=== PATIENT | female | born 1950 | race Caucasian/White ===

== ENCOUNTER 2020-07-10 08:36 | Day surgery (SDC) | payer MEDICARE, MEDICAID ==
[~2020-07-10] VITALS: Ht 167.6 cm; Wt 50.9 kg
--- NOTE | 2020-07-10 10:43 | NUR ---
07/10/20 1043 Katie Boucher 1040 PATIENT ARRIVES TO PACU RESTING WITH EYES CLOSED. RESP EVEN AND UNLABORED, ROOM AIR SATS 100%. PATIENT WAKES UP WITH VERBAL STIMULI, DENIES PAIN OR NAUSEA. BACK TO SLEEP.
--- NOTE | 2020-07-11 08:56 | OR ---
[facility] [address] [place], [place] [address] Signed DATE OF OPERATION: 07/10/2020 SURGEON: Dorothy Alejo MD PREOPERATIVE DIAGNOSIS: Positive Cologuard test. POSTOPERATIVE DIAGNOSES: Multiple sessile polyps (3-7 mm) in the distal right colon, distal hepatic flexure, proximal transverse colon, 35 cm, 32 cm, 23 cm, 7 cm, and 5 cm. PROCEDURE: Colonoscopy with hot biopsy. ESTIMATED BLOOD LOSS: None. INDICATIONS: Tamika is a 69-year-old female, otherwise generally healthy. She has been a lifelong smoker. She has never had a previous colonoscopy. She underwent a Cologuard test and it came back positive. She has no lower GI complaints. There is no family history of colon cancer or polyps. I gave her a pamphlet in the office on colonoscopy and we looked at that together along with the risks including, but not limited to gas bloating, crampy abdominal pain, bleeding, perforation requiring surgery, and missed diagnosis. We also discussed the need for IV conscious sedation. She had expressed understanding and wished to proceed. PROCEDURE NOTE: Tamika was taken into our endoscopy suite and placed in the left lateral decubitus position. She was given IV sedation with 6 mg of Versed and 125 mcg of fentanyl. A digital rectal exam was performed and this was unremarkable. The adult colonoscope was introduced and advanced under direct visualization of camera. When we had in the hepatic flexure, she needed some extra sedation and rotation into the supine position with abdominal compression in order to advance the scope directly into the cecum itself. We could easily see the appendiceal orifice and ileocecal valve. Her prep was good. We took multiple pictures throughout for photodocumentation. We withdrew the scope. The above-mentioned polyps were all easily removed with the help of hot biopsy forceps. We found just a single polyp in the distal right colon, distal hepatic flexure and the proximal transverse colon. However from 35 cm down to each area had multiple polyps. They all appear sessile, most likely were hyperplastic. They were all sent off for Electronically Signed By: DOROTHY ALEJO MD 07/11/20 0856 PATIENT NAME: TAMIKA CONTRERAS OPERATIVE REPORT DATE OF : 48 REPORT #: [id number] PHYSICIAN: DOROTHY ALEJO MD PCP: RICHARD VANEGAS DO REPORT IS CONFIDENTIAL AND NOT TO BE RELEASED WITHOUT AUTHORIZATION [facility] [address] [place] [address] Signed pathologic review. We also cauterized quite a number of polyps particularly in the distal sigmoid colon and in the rectum. The scope was then retroflexed in the rectum and there was no additional pathology noted above the anal canal. After this, the gas was suctioned out and the colonoscope removed. Tamika tolerated the procedure quite well. RECOMMENDATIONS: Tamika probably be toney to consider a repeat colonoscopy anywhere from three months out to 6-8 months or so. I reviewed this with her in the office. Dorothy Alejo MD ALB/MODL /[id number] cc: DO Dorothy Fam MD Copies: RICHARD VANEGAS ANDREW L MD ~ Electronically Signed By: DOROTHY ALEJO MD 07/11/20 0856 PATIENT NAME: TAMIKA CONTRERAS OPERATIVE REPORT DATE OF : 48 REPORT #: [id number] PHYSICIAN: DOROTHY ALEJO MD PCP: RICHARD VANEGAS DO REPORT IS CONFIDENTIAL AND NOT TO BE RELEASED WITHOUT AUTHORIZATION
--- NOTE | 2020-07-12 17:18 | PATH ---
[facility] [address] [place], [place] [address] Signed SPECIMEN(S): A DISTAL RIGHT COLON POLYP SPECIMEN(S): B DISTAL HEPATIC FLEXURE POLYP SPECIMEN(S): C PROXIMAL TRANSVERSE POLYP SPECIMEN(S): D PROXIMAL SIGMOID POLYPS AT 35 CM SPECIMEN(S): E COLON POLYP AT 32 CM SPECIMEN(S): F COLON POLYP AT 23 CM SPECIMEN(S): G COLON POLYPS AT 7 CM SPECIMEN(S): H COLON POLYP AT 5 CM SPECIMEN SOURCE: A. DISTAL RIGHT COLON POLYP B. DISTAL HEPATIC FLEXURE POLYP C. PROXIMAL TRANSVERSE POLYP D. PROXIMAL SIGMOID POLYPS AT 35 CM E. COLON POLYP AT 32 CM F. COLON POLYP AT 23 CM G. COLON POLYPS AT 7 CM H. COLON POLYP AT 5 CM CLINICAL HISTORY: Colonoscopy. Positive Cologuard/colorectal polyps. MICROSCOPIC DESCRIPTION: Histologic sections of all submitted blocks are examined by light microscopy. These findings, together with the gross examination, support the pathologic diagnosis. FINAL PATHOLOGIC DIAGNOSIS: A. Colon, distal right polyp, polypectomy: - Hyperplastic polyp. - Negative for dysplasia or malignancy. B. Colon, distal hepatic flexure polyp, polypectomy: - Hyperplastic polyp. - Negative for dysplasia or malignancy. C. Colon, proximal transverse polyp, polypectomy: - Hyperplastic polyp. - Negative for dysplasia or malignancy. D. Colon, proximal sigmoid polyps at 35 cm, polypectomy: - Hyperplastic polyp (one fragment). - Negative for dysplasia or malignancy. E. Colon, polyp at 32 cm, polypectomy: - Colonic mucosa with no histopathologic abnormality. PATIENT NAME: MELINDA CONTRERAS PATHOLOGY DATE OF : 48 REPORT #: [id number] PHYSICIAN: JONO BEGUM PCP: RICHARD VANEGAS DO REPORT IS CONFIDENTIAL AND NOT TO BE RELEASED WITHOUT AUTHORIZATION [facility] [address] [place], [place] [address] Signed - Negative for dysplasia or malignancy. F. Colon, polyp at 23 cm, polypectomy: - Fragments of hyperplastic polyp. - Negative for dysplasia or malignancy. G. Colon, polyps at 7 cm, polypectomy: - Fragments of hyperplastic polyp(s). - Negative for dysplasia or malignancy. H. Colon, polyp at 5 cm, polypectomy: - Colonic mucosa with no histopathologic abnormality. - Negative for dysplasia or malignancy. NAL:cml:C2NR GROSS DESCRIPTION: Eight specimens are received in eight containers, labeled "VC." A. The specimen, labeled "VC, distal right colon polyp," is received in formalin and consists of two anthony soft tissue fragments that measure 0.1-0.2 cm in greatest dimension. The specimen is entirely submitted in cassette (A1). B. The specimen, labeled "VC, distal hepatic flexure polyp," is received in formalin and consists of one anthony soft tissue fragment that measures 0.2 cm in greatest dimension. The specimen is entirely submitted in cassette (B1). C. The specimen, labeled "VC, proximal transverse colon polyp," is received in formalin and consists of two anthony soft tissue fragments that measure 0.2 cm in greatest dimension. The specimen is entirely submitted in cassette (C1). D. The specimen, labeled "VC, proximal sigmoid colon polyps at 35 cm," is received in formalin and consists of one anthony soft tissue fragment that measures 0.1 cm in greatest dimension. The specimen is entirely submitted in cassette (D1). E. The specimen, labeled "VC, colon polyp at 32 cm," is received in formalin and consists of one anthony soft tissue fragment that measures 0.2 cm in greatest dimension. The specimen is entirely submitted in cassette (E1). F. The specimen, labeled "VC, colon polyp at 23 cm," is received in formalin and consists of two anthony soft tissue fragments that measure 0.2 cm in greatest dimension. The specimen is entirely submitted in cassette (F1). G. The specimen, labeled "VC, colon polyps at 7 cm," is received in formalin and consists of four anthony soft tissue fragments that measure 0.1-0.2 cm in PATIENT NAME: MELINDA CONTRERAS PATHOLOGY DATE OF : 48 REPORT #: [id number] PHYSICIAN: JONO BEGUM PCP: RICHARD VANEGAS DO REPORT IS CONFIDENTIAL AND NOT TO BE RELEASED WITHOUT AUTHORIZATION [address] [address] Signed greatest dimension. The specimen is entirely submitted in cassette (G1). H. The specimen, labeled "VC, colon polyp at 5 cm," is received in formalin and consists of one anthony soft tissue fragment that measures 0.2 cm in greatest dimension. The specimen is entirely submitted in cassette (H1). JS (under the direct supervision of a pathologist) The Gross Description was prepared using a voice recognition system. The report was reviewed for accuracy; however, sound-alike word errors, addition and/or deletions may occur. If there is any question about this report, please contact Client Services. PERFORMING LABORATORY: The technical component was performed by [employer], [address] [place] [id number] ([employer]: Clarisse Saez MD; CLIA# [id number]). [facility], [address] [place] [address] (CLIA# [id number]). Diagnostician: Jody Hardy MD Pathologist Electronically Signed 07/12/2020 Copies: ~ PATIENT NAME: MELINDA CONTRERAS PATHOLOGY DATE OF : 48 REPORT #: [id number] PHYSICIAN: JONO BEGUM PCP: RICHARD VANEGAS DO REPORT IS CONFIDENTIAL AND NOT TO BE RELEASED WITHOUT AUTHORIZATION
== END 2020-07-10 11:30 | disposition home or self-care (01) ==
LOC: DS 08:36 → OPS 08:36 → DS 10:30 → OPS 11:30
PROVIDERS: ATTEND Colon & Rectal Surgery
PROC: 0DBE8ZZ Excision of Large Intestine, Via Natural or Artificial Opening Endoscopic (ICD-10-PCS; principal; 2020-07-10 10:30)
DX: K63.5 Polyp of colon (principal); K62.1 Rectal polyp; H91.93 Unspecified hearing loss, bilateral; R91.8 Other nonspecific abnormal finding of lung field; F17.210 Nicotine dependence, cigarettes, uncomplicated
CPT/HCPCS: 99153; G0500; J2250; J3010; J7121

== ENCOUNTER 2021-12-05 06:05 | Day surgery (SDC) | payer MEDICARE, MEDICAID ==
[~2021-12-05] VITALS: Ht 167.6 cm; Wt 48.8 kg
[~2021-12-05 06:05] MED LIST: VITAMIN D325 MCG
--- NOTE | 2021-12-05 08:00 | NUR ---
12/05/21 0800 Marguerite Guillen 0757-PATIENT ARRIVED TO PACU ON 2L NC RR EVEN LAYING LEFT LATERAL. PATIENT OPENS EYES TO VERBAL STIMULI DENIES PAIN OR NAUSEA. DROWSY DOZES BACK TO SLEEP. ENCOURAGED TO PASS GAS.
--- NOTE | 2021-12-05 09:17 | OR ---
[facility] [address] [place], [place] [address] Signed DATE OF OPERATION: 12/05/2021 SURGEON: Dorothy Alejo MD PREOPERATIVE DIAGNOSIS: Personal history of multiple hyperplastic polyps June 2020. POSTOPERATIVE DIAGNOSES: 1. Minimal internal anal skin tags. 2. Multiple hyperplastic appearing polyps, all less than 4 mm at hepatic flexure, proximal transverse colon, distal transverse colon, 70 cm and 20 cm. PROCEDURE: Colonoscopy with hot biopsy. ESTIMATED BLOOD LOSS: None. INDICATIONS: Tamika is a 71-year-old female, who returns for a followup colonoscopy. She came for her initial colonoscopy in June 2020. At that time, she had a positive guaiac test. She had a large number of small hyperplastic polyps removed. At that time, they were 7 mm or smaller in size. She had done well with Versed and fentanyl. She has no lower GI complaints currently. There is no family history of colon cancer or polyps. She returns now for followup. In the office, I gave her a pamphlet on colonoscopy. We reviewed the nature of the test. She recalls there is risk including, but not limited to gas bloating, crampy abdominal pain, bleeding, perforation requiring surgery, and missed diagnosis. We also reviewed the need for IV conscious sedation. She has always done well with Versed and fentanyl. She expressed understanding and wished to proceed. PROCEDURE NOTE: Tamika was taken into the endoscopy suite and placed in the left lateral decubitus position. She was given 3.5 mg of Versed and 100 mcg of fentanyl to cover the case. A digital rectal exam was performed and this was unremarkable. There were no external hemorrhoids. She has good sphincter tone. The adult colonoscope had been introduced and advanced under direct visualization of the camera up into the cecum itself. Her prep was good. We could easily see the appendiceal orifice and ileocecal valve. The scope was then slowly withdrawn. We took pictures throughout for photodocumentation. The above-mentioned polyps were easily removed with the help of hot biopsy forceps. We could also see multiple previous polypectomy sites from last year. There was no Electronically Signed By: DOROTHY ALEJO MD 12/05/21 0917 PATIENT NAME: TAMIKA CONTRERAS OPERATIVE REPORT DATE OF : 48 REPORT #: [id number] PHYSICIAN: DOROTHY ALEJO MD PCP: ANEUDY VANEGAS DO REPORT IS CONFIDENTIAL AND NOT TO BE RELEASED WITHOUT AUTHORIZATION [facility] [address] [place], [place] [address] Signed diverticulosis. Once in the rectum, the scope was then retroflexed and she has very small internal anal skin tags. After this, the gas was suctioned out and the colonoscope removed. Tamika tolerated the procedure quite well. RECOMMENDATIONS: I will see Tamika back in my office in 7 to 14 days to review her results. I suspect she can increase the interval between colonoscopies. MD MIGUEL ANGEL Ball/LINDA /[id number] cc: MD Aneudy Ball DO Copies: DOROTHY ALEJO MD, ARIAN DO ~ Electronically Signed By: DOROTHY ALEJO MD 12/05/21 0917 PATIENT NAME: TAMIKA CONTRERAS OPERATIVE REPORT DATE OF : 48 REPORT #: [id number] PHYSICIAN: DOROTHY ALEJO MD PCP: ANEUDY VANEGAS DO REPORT IS CONFIDENTIAL AND NOT TO BE RELEASED WITHOUT AUTHORIZATION
--- NOTE | 2021-12-09 14:23 | PATH ---
[facility] [address] [place], [place] [address] Signed SPECIMEN(S): A POLYP HEPATIC FLEXURE SPECIMEN(S): B POLYP TRANSVERSE PROXIMAL COLON SPECIMEN(S): C POLYP DISTAL TRANSVERSE COLON SPECIMEN(S): D POLYP AT 70 CM SPECIMEN(S): E POLYP AT 20 CM SPECIMEN SOURCE: A. POLYP HEPATIC FLEXURE B. POLYP TRANSVERSE PROXIMAL COLON C. POLYP DISTAL TRANSVERSE COLON D. POLYP AT 70 CM E. POLYP AT 20 CM CLINICAL HISTORY: No family history of colon cancer; numerous hyperplastic polyps on 07/10/20 FINAL PATHOLOGIC DIAGNOSIS: A. Colon, hepatic flexure, polypectomy: - Benign colonic mucosa with prominent intramucosal lymphoid aggregate. - No evidence of neoplasia. B. Colon, transverse proximal, polypectomy: - No significant histopathology. - There is no evidence of neoplasia. C. Colon, distal transverse, polypectomy: - No significant histopathology. - There is no evidence of neoplasia. D. Colon, 70 cm, polypectomy: - Hyperplastic polyp. - There is no evidence of dysplasia or malignancy. E. Colon, 20 cm, polypectomy: - Benign colonic mucosa with prominent intramucosal lymphoid aggregate. - No evidence of neoplasia. COMMENT: Regarding specimen A and E, sections of colonic tissue demonstrate a benign intramucosal lymphoid aggregate. Intramucosal lymphoid aggregates can sometimes appear as polyps endoscopically. They have no clinical significance. There is no evidence of dysplasia or malignancy. Regarding specimens B and C, the sections from the specimens are architecturally normal without crypt distortion. There is no acute or chronic inflammation. There are no abnormal infiltrates. There PATIENT NAME: MELINDA CONTRERAS PATHOLOGY DATE OF : 48 REPORT #: [id number] PHYSICIAN: OJNO BEGUM PCP: RICHARD VANEGAS DO REPORT IS CONFIDENTIAL AND NOT TO BE RELEASED WITHOUT AUTHORIZATION [facility] [address] [place], [place] [address] Signed is no evidence of inflammatory, hyperplastic or adenomatous polyps. TWK:[facility]:C2NR MICROSCOPIC EXAMINATION: Histologic sections of all submitted blocks are examined by light microscopy. These findings, together with the gross examination, support the pathologic diagnosis. GROSS DESCRIPTION: Five specimens are received in five containers, labeled "VC." A. The specimen, labeled "VC, hepatic flexure polyp," is received in formalin and consists of one anthony soft tissue fragment that measures 0.3 cm in greatest dimension. The specimen is entirely submitted in cassette (A1). B. The specimen, labeled "VC, transverse colon polyp, proximal," is received in formalin and consists of three anthony soft tissue fragments that measure 0.2 to 0.3 cm in greatest dimension. The specimen is entirely submitted in cassette (B1). C. The specimen, labeled "VC, transverse colon polyp, distal," is received in formalin and consists of one anthony soft tissue fragment that measures 0.3 cm in greatest dimension. The specimen is entirely submitted in cassette (C1). D. The specimen, labeled "VC, polyp at 70 cm," is received in formalin and consists of one anthony soft tissue fragment that measures 0.3 cm in greatest dimension. The specimen is entirely submitted in cassette (D1). E. The specimen, labeled "VC, polyp at 20 cm," is received in formalin and consists of two anthony soft tissue fragments that measure 0.2 to 0.3 cm in greatest dimension. The specimen is entirely submitted in cassette (E1). AT (under the direct supervision of a pathologist) The Gross Description was prepared using a voice recognition system. The report was reviewed for accuracy; however, sound-alike word errors, addition and/or deletions may occur. If there is any question about this report, please contact Client Services. PERFORMING LABORATORY: The technical component was performed by [employer], [address] [place] [id number] (CLIA# [id number]). [facility] professional [facility], Located Within [facility], [address] [place] [address] (CLIA#: PATIENT NAME: MELINDA CONTRERAS PATHOLOGY DATE OF : 48 REPORT #: [id number] PHYSICIAN: JONO BEGUM PCP: RICHARD VANEGAS DO REPORT IS CONFIDENTIAL AND NOT TO BE RELEASED WITHOUT AUTHORIZATION [facility] [address] [place], [place] [address] Signed [id number]). Diagnostician: Cal Jay MD Pathologist Electronically Signed 12/09/2021 Copies: ~ PATIENT NAME: MELINDA CONTRERAS PATHOLOGY DATE OF : 48 REPORT #: [id number] PHYSICIAN: JONO BEGUM PCP: RICHARD VANEGAS DO REPORT IS CONFIDENTIAL AND NOT TO BE RELEASED WITHOUT AUTHORIZATION
== END 2021-12-05 09:05 | disposition home or self-care (01) ==
LOC: DS 06:05 → OPS 06:05 → DS 07:30 → OPS 09:05
PROVIDERS: ATTEND Colon & Rectal Surgery
PROC: 0DBL8ZX Excision of Transverse Colon, Via Natural or Artificial Opening Endoscopic, Diagnostic (ICD-10-PCS; principal; 2021-12-05 07:30)
DX: Z12.11 Encounter for screening for malignant neoplasm of colon (principal); D12.3 Benign neoplasm of transverse colon; I10 Essential (primary) hypertension; F17.210 Nicotine dependence, cigarettes, uncomplicated; H91.90 Unspecified hearing loss, unspecified ear; K64.4 Residual hemorrhoidal skin tags
CPT/HCPCS: 99153; G0500; J2250; J3010; J7121